=== PATIENT | male | born 1970 | race Caucasian/White ===

== ENCOUNTER → 2023-09-29 | Outpatient (CLI) | payer OTHER, SELFPAY ==
--- NOTE | 2023-09-29 08:45 | RAD_ITS ---
EXAM: XR RIGHT ANKLE, 2 VIEWS CLINICAL INDICATION: RIGHT ANKLE RESIDUALS OF BROKEN ANKLE TECHNIQUE: Frontal and lateral views of the right ankle. COMPARISON: No relevant prior studies available. FINDINGS: BONES/JOINTS: Corticated ossicle adjacent to the fibular head which may represent remote trauma with nonunion. This could also be developmental. Tiny posterior calcaneal enthesophyte. Ankle mortise is intact. Preservation of the joint space. No sclerotic or destructive changes observed. No acute 4 healing fracture or malalignment. SOFT TISSUES: Moderate soft tissue swelling adjacent to the lateral malleolus. Moderate tibiotalar joint effusion suspected, more prominent posteriorly. RAD/Ankle 2 Views IMPRESSION: 1. Corticated ossicle adjacent to the fibular head which may represent remote trauma with nonunion. This could also be developmental. 2. Moderate soft tissue swelling adjacent to the lateral malleolus. Moderate tibiotalar joint effusion suspected, more prominent posteriorly. Electronically Signed: Adeel Maynard MD at 23:17 EDT ,
--- OUTSIDE RECORDS SUMMARY | 2023-09-29 09:03 | XMS RPT_ITS | CCD ---
Author Name Unknown Address [address] [place] [address] Organization [facility] Care Team Providers Care Consulting Utility Forester Name Role Phone Lala Meyers MD Primary Care Provider LALA MEYERS Primary Care Unavailable NIKKI REMY Attending Unavailable Lala Meyers MD Primary Care Provider SELF Referring Unavailable LALA MEYERS Primary Care Unavailable ROMEO GARCIA Attending Unavailable ROMEO GARCIA Referring Unavailable LALA MEYERS Primary Care Unavailable LALA MEYERS Primary Care Unavailable KELLIE MOREAU Attending Unavailable TOMASZ SEXTON MD Attending Unavailable PA, [facility] Primary Care Unavailable LESIA MCCLAIN Consulting Unavailable Medications Current Medications Medication Drug Class(es) Dates Sig (Normalized) Sig (Original) tobramycin 3 mg/ml ophthalmic solution (1 source) Aminoglycoside Antibacterial Start: 01-03-2023 End: 01-08-2023 take 1-2 drop(s) into the eye(s) three times daily tobramycin (TOBREX) 0.3 % ophthalmic solution Indications: Foreign body of left cornea, initial encounter Use 1-2 Drops in the left eye three times daily for 5 days. 5 mL 0 01/03/2023 01/08/2023 Active Completed/Discontinued Medications Medication Drug Class(es) Dates Sig (Normalized) Sig (Original) bisacodyl 5 mg delayed release oral tablet (5 sources) Stimulant Laxative Start: 10-01-2021 Bisacodyl (DULCOLAX) 5 mg tab Use as directed for Miralax / Gatorade Bowel Prep Kit 4 tablet 0 10/01/2021 Active Problems Active Problems Problem Classification Problem Date Documented Date Episodic/Chronic Abdominal pain (1 source) Left lower quadrant pain; Translations: [Left lower quadrant abdominal pain] Onset: 09-15-2023 Episodic Disorders of lipid metabolism (1 source) Mixed hyperlipidemia; Translations: [Mixed hyperlipidemia] Chronic Diverticulosis and diverticulitis (1 source) Diverticulitis of intestine, part unspecified, without perforation or abscess without bleeding; Translations: [Diverticulitis] Onset: 09-15-2023 Chronic Other injuries and conditions due to external causes (1 source) Unspecified injury of unspecified wrist, hand and finger(s), initial encounter; Translations: [Fish hook in finger] Onset: 12-15-2022 Episodic Other injuries and conditions due to external causes (1 source) Foreign body in left cornea; Translations: [Foreign body in cornea, left eye, initial encounter] Episodic Other screening for suspected conditions (not mental disorders or infectious disease) (1 source) Patient encounter status; Translations: [Encounter for screening for malignant neoplasm of colon] Episodic Other upper respiratory infections (1 source) Pharyngitis; Translations: [Acute pharyngitis, unspecified] Episodic Residual codes; unclassified (1 source) Family history of cancer of colon; Translations: [Family history of malignant neoplasm of digestive organs] Episodic Past or Other Problems Problem Classification Problem Date Documented Date Episodic/Chronic Other injuries and conditions due to external causes (1 source) Foreign body in cornea, left eye, initial encounter; Translations: [Foreign body of left cornea, initial encounter] Onset: 01-03-2023 Episodic Residual codes; unclassified (5 sources) Family history of malignant neoplasm of gastrointestinal tract; Translations: [Family history of malignant neoplasm of digestive organs] Onset: 04-01-2011 04-01-2011 Episodic Results Test Name Value Interpretation Reference Range Facil ity Vital Signs Date Time Vital Sign Value Performing Clinician Faci lity 01-03-2023 09:16-0400 Body temperature 97.39 [degF] Kellie Moreau MD Work Phone: [facility] 01-03-2023 09:16-0400 Body weight 106.59 kg Kellie Moreau MD Work Phone: [facility] 01-03-2023 09:16-0400 Diastolic blood pressure 68 mm[Hg] Kellie Moreau MD Work Phone: [facility] 01-03-2023 09:16-0400 Heart rate 62 /min Kellie Moreau MD Work Phone: [facility] 01-03-2023 09:16-0400 Respiratory rate 18 /min Kellie Moreau MD Work Phone: [facility] 01-03-2023 09:16-0400 SaO2% (BldA) [Mass fraction] 98 % Kellie Moreau MD Work Phone: [facility] 01-03-2023 09:16-0400 Systolic blood pressure 143 mm[Hg] Kellie Moreau MD Work Phone: [facility] 06-24-2022 10:20-0500 Body temperature 98.4 [degF] Amy Schaal OBIEE LEAD DEVELOPER.INSIDE CHANNEL ACCOUNT MANAGER Work Phone: [facility] 06-24-2022 10:20-0500 Body weight 112.49 kg Amy Schaal OBIEE LEAD DEVELOPER.INSIDE CHANNEL ACCOUNT MANAGER Work Phone: [facility] 06-24-2022 10:20-0500 Diastolic blood pressure 90 mm[Hg] Amy Schaal OBIEE LEAD DEVELOPER.INSIDE CHANNEL ACCOUNT MANAGER Work Phone: [facility] 06-24-2022 10:20-0500 Heart rate 63 /min Amy Schaal OBIEE LEAD DEVELOPER.INSIDE CHANNEL ACCOUNT MANAGER Work Phone: [facility] 06-24-2022 10:20-0500 Respiratory rate 17 /min Amy Schaal OBIEE LEAD DEVELOPER.INSIDE CHANNEL ACCOUNT MANAGER Work Phone: [facility] 06-24-2022 10:20-0500 SaO2% (BldA) [Mass fraction] 97 % Amy Schaal OBIEE LEAD DEVELOPER.INSIDE CHANNEL ACCOUNT MANAGER Work Phone: [facility] 06-24-2022 10:20-0500 Systolic blood pressure 161 mm[Hg] Amy Schaal OBIEE LEAD DEVELOPER.INSIDE CHANNEL ACCOUNT MANAGER Work Phone: [facility] 11-05-2021 09:05-0400 Diastolic blood pressure 86 mm[Hg] Blas Menezes MD Work Phone: [facility] 11-05-2021 09:05-0400 Heart rate 50 /min Blas Menezes MD Work Phone: [facility] 11-05-2021 09:05-0400 Respiratory rate 18 /min Blas Menezes MD Work Phone: [facility] 11-05-2021 09:05-0400 SaO2% (BldA) [Mass fraction] 98 % Blas Menezes MD Work Phone: [facility] 11-05-2021 09:05-0400 Systolic blood pressure 138 mm[Hg] Blas Menezes MD Work Phone: [facility] 11-05-2021 08:48-0400 Body temperature 97 [degF] Blas Menezes MD Work Phone: [facility] Encounters Encounter Date Encounter Type Care Provider Facility Start: 09-16-2023 End: 09-16-2023 Emergency department patient visit TOMASZ SEXTON MD Facility:A Start: 09-15-2023 End: 09-15-2023 ambulatory SELF Facility:[id number] Start: 01-03-2023 End: 01-03-2023 ambulatory LALA GANTA Facility:[id number] Start: 01-03-2023 End: 01-03-2023 Office outpatient visit 15 minutes Kellie Moreau MD Work Phone: [facility] [place] Procedures Date Procedure Procedure Detail Performing Clinician Start: 06-24-2022 Iaad ia streptococcu s group a Amy Herb OBIEE LEAD DEVELOPER.INSIDE CHANNEL ACCOUNT MANAGER Work Phone: Start: 11-05-2021 Colon ca scrn not hi rsk ind Cari Tom PA-C Work Phone: Start: 11-05-2021 Colonoscopy Blas Menezes MD Work Phone: Start: 05-21-2021 Adult depression scr eening assessment Prudence Villegas OBIEE LEAD DEVELOPER.INSIDE CHANNEL ACCOUNT MANAGER Work Phone: Start: 05-10-2016 Colonoscopy Prudence Villegas OBIEE LEAD DEVELOPER.INSIDE CHANNEL ACCOUNT MANAGER Work Phone: Plan of Treatment Date Care Activity Detail Author Start: 12-15-2032 Urine microalbumin profile DTAP,TDAP,TD (2 - Td or Tdap) [facility] Start: 11-05-2026 Colonoscopy COLONOSCOPY [facility] Start: 11-05-2026 COLORECTAL CANCER SCREENING COLORECTAL CANCER SCREENING [facility] Start: 09-20-2026 LIPID SCREEN LIPID SCREEN [facility] Start: 09-20-2024 DIABETES SCREEN DIABETES SCREEN [facility] Start: 03-21-2023 Influenza vaccination INFLUENZA (Season Ended) [facility] Start: 07-21-2022 DEPRESSION ASSESSMENT DEPRESSION ASSESSMENT [facility] Start: 06-24-2022 End: 08-24-2022 Respiratory pathogens DNA and RNA 12b panel - Unspecified specimen by JOSE CARLOS with probe detection [facility] Work Phone: Immunizations Immunization Date Immunization Notes Care Provider Fa eusebio 12-15-2022 tetanus toxoid, redu austin diphtheria toxoid, and acellular pertussis vaccine, adsorbed Kellie Moreau MD Work Phone: [facility] Payers Date Payer Category Payer Unknown [id number] 2020 Private Health Insurance [facility] [employer] [id number] 2020-Present [phone] [address] [place] [id number] O [id number] 2020 Private Health Insurance [facility] [employer] [id number] 2020-Present [phone] [address] [place] [id number] O [id number] 2020 Unknown [id number] 1970 Unknown [id number] Social History Date Type Detail Facility Start: 09-14-2021 End: 01-03-2023 Tobacco smoking status NHIS Ex-smoker [facility] Work Phone: End: 07-21-2019 History of tobacco use Current smoker [facility] Work Phone: End: 07-21-2019 History of tobacco use Cigar Smoker [facility] Work Phone: Start: 09-14-2021 End: 01-03-2023 Tobacco use and exposure Smokeless tobacco non-user [facility] Work Phone: Start: 09-14-2021 End: 01-03-2023 Alcohol intake Current drinker of alcohol (finding) [facility] Start: 09-14-2021 End: 01-03-2023 Alcohol intake [facility] Start: 09-13-2021 History SDOH Alcohol Frequency 3 [facility] Start: 09-13-2021 History SDOH Alcohol Binge 2 [facility] Start: 09-13-2021 History SDOH Social Connections Meetings 1 [facility] Start: 09-13-2021 History SDOH Physica l Activity MPS 9 [facility] Start: 09-13-2021 History SDOH Financial 4 [facility] Start: 08-04-2019 End: 01-03-2023 Tobacco Comment rare [facility] Start: 1970 Sex Assigned At Not on file [facility] Start: 10-26-2021 End: 06-24-2022 Exposure to SARS-CoV-2 (event) Not sure [facility] Clinical Notes 05-10-2016 to 09-15-2023 Patient InstructionsPratheanthony Moreau MD - 01/03/2023 9:22 AM EDTPatient Bang Estevez APRN.CNP - 06/24/2022 10:43 AM Deana Lora RN - 11/05/2021 9:14 AM EDT Note Date & Type Note Facility 09-15-2023 Note HNO ID: [id number] Author: ORMEO GARCIA APRN.KILEY Service: ? Author Type: Nurse Practitioner Type: Progress Notes Filed: 09/15/2023 13:12 Note Text: Kal is a 52 year old male arriving at clinic today for Patient presents with: Abdominal Pain: Lower Middle Started yesterday evening Hx of diverticulitis Rash: Patient states he broke out into hives in the middle of night and it went away after taking benadryl HPI A 52 y/o male presents with lower abdominal pain with burning, or feeling of hot spots. He had a colonoscopy and was diagnosed with diverticulosis. He feels he is having a flare up. Denies fever, chills. Vital Signs: BP 125/86 Pulse 86 Temp (Src) 97.4 (Temporal) Resp 18 SpO2 97% Allergies: ALLERGIES No Known Allergies Current Medications: MULTIVITAMIN ORAL Take by mouth once daily. Lactobacillus acidophilus (PROBIOTIC ORAL) Take by mouth once daily. Garlic 1,000 mg cap Take by mouth as directed. [place]-3 Fatty Acids (SALMON OIL-1000) 1,000-200 mg cap TAKE BY MOUTH EVERY DAY diclofenac (VOLTAREN) 1 % topical gel APPLY 4GM MEASURED ON DOSING CARD EXTERNALLY TWICE A DAY TO RIGHT ANKLE (GENTLY MASSAGE INTO SKIN) *FLAMMABLE: KEEP AWAY FROM HEAT AND FLAMES* polyethylene glycol 3350 (MIRALAX, GLYCOLAX) 17 gram/dose powder Use as directed for Miralax / Gatorade Bowel Prep Kit Gatorade Sports Drink Use as directed for Miralax / Gatorade Bowel Prep Kit Bisacodyl (DULCOLAX) 5 mg tab Use as directed for Miralax / Gatorade Bowel Prep Kit sulfamethoxazole-trimethoprim (BACTRIM DS) 800-160 mg per tablet Take 1 tablet by mouth two times a day for 7 days. metroNIDAZOLE (FLAGYL) 500 mg tablet Take 1 tablet by mouth two times a day for 7 days. PAST MEDICAL HISTORY Diagnosis Date Diverticulosis of colon (without mention of hemorrhage) High cholesterol PAST SURGICAL HISTORY Procedure Laterality Date COLONOSCOPY FLX DX W/COLLJ SPEC WHEN PFRMD [id number] Colonoscopy COLONOSCOPY FLX DX W/COLLJ SPEC WHEN PFRMD 05/27/2011 Colonoscopy COLONOSCOPY FLX DX W/COLLJ SPEC WHEN PFRMD 05/10/2016 Colonoscopy COLONOSCOPY SCREENING 11/05/2021 Review of Systems: Review of Systems see HPI Exam: Physical Exam ASSESSMENT/PLAN: 1. Left lower quadrant abdominal pain - ICD9: 789.04, ICD10: R10.32 (primary diagnosis) Unremarkable - XR ABDOMEN 1V SUPINE 2. Diverticulitis - ICD9: 562.11, ICD10: K57.92 Diet Modification Push fluids Plenty of rest If symptoms worsen with treatment, go to ED - SULFAMETHOXAZOLE 800 MG-TRIMETHOPRIM 160 MG TABLET - METRONIDAZOLE 500 MG TABLET Patient stable at discharge If worsen, go to ED Reviewed exam results in detail and plan with patient Patient understands and agreed. Romeo Garcia APRN.INSIDE CHANNEL ACCOUNT MANAGER . [facility] 09-15-2023 Note HNO ID: [id number] Author: DEE PECK RT(R) Service: ? Author Type: Technologist Type: Progress Notes Filed: 09/15/2023 13:12 Note Text: Radiology Service Progress Note PATIENT NAME: Kal Ibrahim DATE OF SERVICE: September 15, 2023 TIME: 1:11 PM PATIENT IDENTITY VERIFICATION COMPLETED USING TWO (2) IDENTIFIERS: Name and Date of confirmed by patient verbally. FALL SCREENING: Has the patient had 2 falls in the last year or 1 fall with injury or currently using an Ambulatory Assistive Device (Walker, Cane, Wheelchair, Crutches, etc.)? No PATIENT GENDER DATA: Male PATIENT RELEVANT IMPLANT DATA REVIEWED: Not Applicable PATIENT PRESENTS WITH AN IMPLANTABLE OR ATTACHED MEDICAL REVIEWER: No RADIOLOGY DEPARTMENT: General X-ray: Exam(s) Completed: Abdomen X-Ray: Abdomen PERIPHERAL IV DATA: Not applicable SIGNED BY: RT Doc(R) September 15, 2023 1:11 PM [facility] 01-03-2023 Note HNO ID: [id number] Author: Kellie Moreau MD Service: ? Author Type: Physician Type: Progress Notes Filed: 01/03/2023 9:40 AM Note Text: Kal Ibrahim is a 52 year old MALE who presents with Eye Problem (Left eye watery/pain thinks something is in eye x 3 days off/on) 52 years old male presented with irritation of the left eye for the last few days He feels like there is something in his eye, when he looked into the mirror he saw white spot on the upper part of his cornea He has been having a lot of watering, vision is unchanged No other problem at this visit PAST MEDICAL HISTORY Diagnosis Date Diverticulosis of colon (without mention of hemorrhage) High cholesterol ACTIVE PROBLEM LIST Family History of Malignant Neoplasm of Gastrointestinal Tract Current Outpatient Medications Medication Sig Dispense Refill Garlic 1,000 mg cap Take by mouth as directed. [place]-3 Fatty Acids (SALMON OIL-1000) 1,000-200 mg cap TAKE BY MOUTH EVERY DAY diclofenac (VOLTAREN) 1 % topical gel APPLY 4GM MEASURED ON DOSING CARD EXTERNALLY TWICE A DAY TO RIGHT ANKLE (GENTLY MASSAGE INTO SKIN) *FLAMMABLE: KEEP AWAY FROM HEAT AND FLAMES* polyethylene glycol 3350 (MIRALAX, GLYCOLAX) 17 gram/dose powder Use as directed for Miralax / Gatorade Bowel Prep Kit (Patient not taking: Reported on 06/24/2022) 238 g 0 Gatorade Sports Drink Use as directed for Miralax / Gatorade Bowel Prep Kit (Patient not taking: Reported on 06/24/2022) Bisacodyl (DULCOLAX) 5 mg tab Use as directed for Miralax / Gatorade Bowel Prep Kit (Patient not taking: Reported on 06/24/2022) 4 tablet 0 No current facility-administered medications for this visit. Social History Tobacco Use Smoking status: Former Types: Cigars Quit date: 2019 Years since quittin.4 Smokeless tobacco: Never Tobacco comments: rare Vaping Use Vaping Use: Former Substance Use Topics Alcohol use: Yes Alcohol/week: 2.0 standard drinks Types: 2 Shots of liquor per week Drug use: No Alcohol Use: Approximately 1.2 oz/week [which includes 2 Shots of liquor per week] Tobacco Use: Types: Cigars FAMILY HISTORY Problem Relation Age of Onset Colon Cancer Father 50 Skin Cancer Father Colon Cancer Paternal Aunt Colon Cancer Paternal Uncle No Known Problems Mother Colon Cancer Brother Colon Cancer Paternal Grandmother other (Other) Paternal Grandfather mental health dx other (Other) Brother ETOH abuse Psoriasis Son Review of Systems Eyes: Positive for redness. Irritation and watering of the left eye with suspected foreign body Respiratory: Negative. Cardiovascular: Negative. All other systems reviewed and are negative. BP 143/68 Pulse 62 Temp 97.4 Resp 18 Wt 235 lb (106.6kg) SpO2 98% Physical Exam Vitals reviewed. Constitutional: Appearance: Normal appearance. Eyes: Extraocular Movements: Extraocular movements intact. Pupils: Pupils are equal, round, and reactive to light. Comments: Exam the left eye revealed small whitish foreign body particle at the rim of the cornea at 11 o'clock position Left eye was slightly injected with some watering, no discharge The rest of exam was normal After verbal consent I tried to remove the foreign body with the help of wet Q-tip but it was not successful, I numbed his eye with tetracaine 1 drop. When the eye was numb I attempted to remove again with the help of wet Q-tip in the first attempt the foreign body was partially removed, in the second attempt I was able to remove the remaining foreign body. Reevaluation after removal did not show any remaining foreign body on his cornea. So the removal was eventually successful. Neurological: Mental Status: He is alert. Current body from the left cornea was removed as explained above. Explained patient that I still want him to see an eye doctor because the foreign body remained there for 3 days Patient understand and agreed ASSESSMENT/PLAN: 1. Foreign body of left cornea, initial encounter - ICD9: 930.0, E914, ICD10: T15.02XA - TOBRAMYCIN 0.3 % EYE DROPS Don't rub your eye See eye doctor for further care Explained Use eyedrops as instructed Kellie Moreau MD [facility] 01-03-2023 Instructions Kellie Moreau MD - 01/03/2023 9:38 AM EDT Don't rub your eye See eye doctor for further care Explained Use eyedrops as instructed documented in this encounter [facility] 01-03-2023 History of Presen t illness Narrative Kal Ibrahim is a 52 year old MALE who presents with Eye Problem (Left eye watery/pain thinks something is in eye x 3 days off/on) 52 years old male presented with irritation of the left eye for the last few days He feels like there is something in his eye, when he looked into the mirror he saw white spot on the upper part of his cornea He has been having a lot of watering, vision is unchanged No other problem at this visit PAST MEDICAL HISTORY Diagnosis Date Diverticulosis of colon (without mention of hemorrhage) High cholesterol ACTIVE PROBLEM LIST Family History of Malignant Neoplasm of Gastrointestinal Tract Current Outpatient Medications Medication Sig Dispense Refill Garlic 1,000 mg cap Take by mouth as directed. [place]-3 Fatty Acids (SALMON OIL-1000) 1,000-200 mg cap TAKE BY MOUTH EVERY DAY diclofenac (VOLTAREN) 1 % topical gel APPLY 4GM MEASURED ON DOSING CARD EXTERNALLY TWICE A DAY TO RIGHT ANKLE (GENTLY MASSAGE INTO SKIN) *FLAMMABLE: KEEP AWAY FROM HEAT AND FLAMES* polyethylene glycol 3350 (MIRALAX, GLYCOLAX) 17 gram/dose powder Use as directed for Miralax / Gatorade Bowel Prep Kit (Patient not taking: Reported on 06/24/2022) 238 g 0 Gatorade Sports Drink Use as directed for Miralax / Gatorade Bowel Prep Kit (Patient not taking: Reported on 06/24/2022) Bisacodyl (DULCOLAX) 5 mg tab Use as directed for Miralax / Gatorade Bowel Prep Kit (Patient not taking: Reported on 06/24/2022) 4 tablet 0 No current facility-administered medications for this visit. Social History Tobacco Use Smoking status: Former Types: Cigars Quit date: 2019 Years since quittin.4 Smokeless tobacco: Never Tobacco comments: rare Vaping Use Vaping Use: Former Substance Use Topics Alcohol use: Yes Alcohol/week: 2.0 standard drinks Types: 2 Shots of liquor per week Drug use: No Alcohol Use: Approximately 1.2 oz/week [which includes 2 Shots of liquor per week] Tobacco Use: Types: Cigars FAMILY HISTORY Problem Relation Age of Onset Colon Cancer Father 50 Skin Cancer Father Colon Cancer Paternal Aunt Colon Cancer Paternal Uncle No Known Problems Mother Colon Cancer Brother Colon Cancer Paternal Grandmother other (Other) Paternal Grandfather mental health dx other (Other) Brother ETOH abuse Psoriasis Son Review of Systems Eyes: Positive for redness. Irritation and watering of the left eye with suspected foreign body Respiratory: Negative. Cardiovascular: Negative. All other systems reviewed and are negative. BP 143/68 Pulse 62 Temp 97.4 Resp 18 Wt 235 lb (106.6kg) SpO2 98% Physical Exam Vitals reviewed. Constitutional: Appearance: Normal appearance. Eyes: Extraocular Movements: Extraocular movements intact. Pupils: Pupils are equal, round, and reactive to light. Comments: Exam the left eye revealed small whitish foreign body particle at the rim of the cornea at 11 o'clock position Left eye was slightly injected with some watering, no discharge The rest of exam was normal After verbal consent I tried to remove the foreign body with the help of wet Q-tip but it was not successful, I numbed his eye with tetracaine 1 drop. When the eye was numb I attempted to remove again with the help of wet Q-tip in the first attempt the foreign body was partially removed, in the second attempt I was able to remove the remaining foreign body. Reevaluation after removal did not show any remaining foreign body on his cornea. So the removal was eventually successful. Neurological: Mental Status: He is alert. Current body from the left cornea was removed as explained above. Explained patient that I still want him to see an eye doctor because the foreign body remained there for 3 days Patient understand and agreed ASSESSMENT/PLAN: 1. Foreign body of left cornea, initial encounter - ICD9: 930.0, E914, ICD10: T15.02XA - TOBRAMYCIN 0.3 % EYE DROPS Don't rub your eye See eye doctor for further care Explained Use eyedrops as instructed Kellie Moreau MD documented in this encounter [facility] 06-24-2022 Instructions Amy Estevez APRN.[facility] - 06/24/2022 11:07 AM EST Mask until COVID-19 results known. How to Manage Common Symptoms Associated with COVID for Adults Fever- Fever is a temperature over 100.4 F and can occur when the body is fighting an infection. To help treat a fever: Drink plenty of fluids and stay well hydrated. Eat small amounts of easy to digest food. Rest. Your body needs rest to recover, but getting up and moving around the house frequently is a good idea. You should try to continue doing your normal daily activities (bathing, toileting, grooming, cooking), though you will probably feel tired, and need to rest often. Avoid any heavy activity or exercise, as this will increase your body temperature. Dress in light clothing and stay covered in a light sheet. Keep the room temperature cool. Take a slightly warm (not cold or cool) bath, or apply damp washcloths to the forehead and wrists. Cough- Cough is a common symptom associated with COVID and can be bothersome. To help treat a cough: Stay well hydrated. Try warm water or tea with lemon and/or honey to help soothe the cough. Use a humidifier to add moisture to the air. Try a product with menthol, like a cough drop or a rub for your chest such as Vicks, which can help reduce cough. Try cough drops. Avoid smoking and other strong odors or perfumes. Try breathing exercises to keep your lungs open and clear. Take a big deep breath through your nose and hold for 5 seconds before slowly releasing. Repeat frequently, while you are awake. Congestion- Runny nose or nasal congestion can occur with COVID. Treatment can help relieve symptoms: Try OTC nasal saline spray, or nasal saline rinse to relieve mucus congestion. Nasal strips can help keep nasal passages open, to increase airflow. Elevating your head with an extra pillow in bed can help reduce congestion. Using a humidifier can increase moisture in the air, and make breathing easier. Sore Throat- Another common symptom with COVID, can be managed at home by: Stay well hydrated. Gargle with salt water - mix teaspoon salt with 1 cup of warm water and gargle. This helps to loosen mucus in the back of the throat and may reduce discomfort. Try ice chips, popsicles or lozenges to soothe the throat. Nausea/Vomiting/Diarrhea- These are common symptoms, and staying hydrated is most important. If you are nauseous or vomiting, start with small sips of water every 10-15 minutes and increase as tolerated. You can try sucking an ice cube too. If tolerating, you can try pedialyte or Gatorade, or flat sprite or candice-chris. Start slowly and increase as you are able to. Instead of meals, try smaller, more frequent snacks. Try eating bland foods like crackers, toast, rice, and applesauce. Avoid spicy, greasy or fried foods and dairy containing foods. Even if you aren't feeling hungry due to lack of smell or taste, it is important to try to take in some food when you are able. After drinking and eating, rest in an upright position for up to two hours as needed to help decrease nauseous feelings. Try closing your eyes, avoid moving and watching TV. Avoid strong odors that can make you feel more nauseated. When to seek emergency medical attention Look for emergency warning signs for COVID-19. If having any of these symptoms, seek emergency medical care immediately: Trouble breathing Persistent pain or pressure in the chest New confusion Inability to wake or stay awake Bluish lips or face *This list is not all possible symptoms. Please call your medical provider for any other symptoms that are severe or concerning to you. documented in this encounter [facility] 06-24-2022 History of Presen t illness Narrative CC: Sore Throat (Cough congestion sinus pressure fever had a rash on while fevered) HPI: Kal Ibrahim is an 51 year old male presenting with complaints of a sore throat, cough, congestion, sinus pressure and subjective fevers. He states that on while he was fevered he developed a red rash, head to toe that was very itchy for 12 hours but resolved on its own, and has not returned. Denies change in lotions, soaps, detergents, diet or medication with onset of rash. Denies any shortness of breath or difficulty breathing. Denies nausea, vomiting or diarrhea. was exposed to strep and would like to be tested. Been taking Mucinex and Tylenol for the symptoms. States that he is just not getting any better. PAST MEDICAL HISTORY Diagnosis Date Diverticulosis of colon (without mention of hemorrhage) High cholesterol ACTIVE PROBLEM LIST Family History of Malignant Neoplasm of Gastrointestinal Tract ALLERGIES No Known Allergies Current Outpatient Medications Medication Sig Dispense Refill rosuvastatin (CRESTOR) 5 mg tablet TAKE 1 TABLET BY MOUTH EVERYDAY AT BEDTIME (Patient not taking: Reported on 06/24/2022) 30 tablet 5 polyethylene glycol 3350 (MIRALAX, GLYCOLAX) 17 gram/dose powder Use as directed for Miralax / Gatorade Bowel Prep Kit (Patient not taking: Reported on 06/24/2022) 238 g 0 Gatorade Sports Drink Use as directed for Miralax / Gatorade Bowel Prep Kit (Patient not taking: Reported on 06/24/2022) Bisacodyl (DULCOLAX) 5 mg tab Use as directed for Miralax / Gatorade Bowel Prep Kit (Patient not taking: Reported on 06/24/2022) 4 tablet 0 No current facility-administered medications for this visit. Social History Tobacco Use Smoking status: Former Types: Cigars Quit date: 2019 Years since quittin.9 Smokeless tobacco: Never Tobacco comments: rare Vaping Use Vaping Use: current everyday user Substance Use Topics Alcohol use: Yes Alcohol/week: 2.0 standard drinks Types: 2 Shots of liquor per week Drug use: No Alcohol Use: Approximately 1.2 oz/week [which includes 2 Shots of liquor per week] Tobacco Use: Quit 07/21/2019. Types: Cigars (rare) FAMILY HISTORY Problem Relation Age of Onset Colon Cancer Father 50 Skin Cancer Father Colon Cancer Paternal Aunt Colon Cancer Paternal Uncle No Known Problems Mother Colon Cancer Brother Colon Cancer Paternal Grandmother other (Other) Paternal Grandfather mental health dx other (Other) Brother ETOH abuse Psoriasis Son ROS: Unless otherwise stated in this report the patient's positive and negative responses for review of systems for constitutional, eyes, ENT, cardiovascular, respiratory, gastrointestinal, neurological, , musculoskeletal, and integument systems and related systems to the presenting problem are either stated in the history of present illness or were not pertinent or were negative for the symptoms and/or complaints related to the presenting medical problem. Positives and pertinent negatives as per HPI. All others reviewed and are negative. 06/24/22 1020 BP: (!) 161/9 Pulse: 63 Resp: 17 Temp: 36.9 C (98.4 F) SpO2: 97% Weight: 112.5 kg (248 lb) Physical Exam: Physical Exam Vitals and nursing note reviewed. Constitutional: General: He is not in acute distress. Appearance: Normal appearance. He is not ill-appearing or toxic-appearing. HENT: Right Ear: Hearing normal. Tympanic membrane is erythematous. Tympanic membrane is not perforated. Left Ear: Hearing normal. Tympanic membrane is erythematous. Tympanic membrane is not perforated. Nose: Congestion and rhinorrhea present. Right Turbinates: Swollen. Left Turbinates: Swollen. Right Sinus: Maxillary sinus tenderness and frontal sinus tenderness present. Left Sinus: Maxillary sinus tenderness and frontal sinus tenderness present. Mouth/Throat: Mouth: Mucous membranes are moist. Pharynx: Posterior oropharyngeal erythema present. No pharyngeal swelling, oropharyngeal exudate or uvula swelling. Tonsils: No tonsillar exudate or tonsillar abscesses. Cardiovascular: Rate and Rhythm: Normal rate and regular rhythm. Heart sounds: Normal heart sounds, S1 normal and S2 normal. No murmur heard. No friction rub. No gallop. Pulmonary: Effort: Pulmonary effort is normal. No respiratory distress. Breath sounds: Normal breath sounds and air entry. No decreased breath sounds, wheezing, rhonchi or rales. Skin: General: Skin is warm and dry. Capillary Refill: Capillary refill takes less than 2 seconds. Neurological: Mental Status: He is alert. Mental status is at baseline. Psychiatric: Behavior: Behavior is cooperative. ASSESSMENT/PLAN: 1. Pharyngitis, unspecified etiology - ICD9: 462, ICD10: J02.9 - Rapid Strep negative in the office today and Throat culture pending - RAPID GROUP A STREP RFLX TO CULT - Symptomatic treatment with [id number] analgesics and decongestants as needed. - Warm salt water gargles, antiseptic throat sprays and throat lozenges as needed for discomfort in the throat - Wear a mask and we will call with results. - COVID-19 symptom management reviewed with patient - Discussed warning symptoms that should prompt evaluation at the emergency department. - Follow-up with primary care/construction manager in 3 to 5 days if symptoms unresolved, or to the emergency department for worsening symptoms. - Patient/Guardian agrees & understands plan Amy Estevez APRN.INSIDE CHANNEL ACCOUNT MANAGER documented in this encounter [facility] 11-05-2021 Note HNO ID: [id number] Author: Alysa Lora RN Service: ? Author Type: Registered Nurse Type: Nursing Progress Note Filed: 11/05/2021 9:15 AM Note Text: Dr Menezes at bedside to speak with patient already. [facility] 11-05-[address] Menezes at bedside to speak with patient already. documented in this encounter [facility] 11-05-2021 History and physical note HISTORY AND PHYSICAL Kal Ibrahim, 51 year old male Current history and physical on file: Yes Is a new History and Physical required for today's visit? No Indication for procedure: Screening PROCEDURE(S) SCHEDULED FOR: Colonoscopy with or without biopsies and with or without removal of polyps or lesions, dilation (any means), treatment of bleeding (any means), based on clinical findings. BASELINE BEHAVIOR: Calm BASELINE ORIENTATION: A & O x3 All medications and allergies reviewed: Yes Skin Assessment: Warm dry mucus membranes pink Airway/Respiratory Assessment: Airway: visualization of the uvula- Yes Mouth: opening greater than 2 fingerbreadths- Yes Neck: full range of motion- Yes Breath sounds clear/equal- Yes Cardiac Assessment: Regular rate and rhythm without murmur Abdominal Assessment: Abdomen soft, non-tender, no masses or organomegaly. Sedation Plan: Moderate Additional Comments: None Blas Menezes MD documented in this encounter [facility] 10-24-2021 Miscellaneous Notes Patient has been identified by name and date of : Yes Patient phones for refill(s): Pending Prescriptions Disp Refills ROSUVASTATIN 5 MG TABLET 30 tablet 1 Sig: TAKE 1 TABLET BY MOUTH EVERYDAY AT BEDTIME ALEJANDRA: Yes Date of last office visit in primary care: 09/14/21 Last 2 Encounter Wt Readings: Date: Wt: 09/14/2021 105.2 kg (232 lb) 08/04/2019 112.5 kg (248 lb) Previous labs/tests for medication: Cholesterol: HDL Cholesterol (mg/dL) Date Value 09/20/2021 50 08/12/2019 47 LDL Cholesterol (mg/dL) Date Value 09/20/2021 215 08/12/2019 190 ALT (U/L) Date Value 09/20/2021 19 Non HDL Cholesterol (mg/dL) Date Value 09/20/2021 230 08/12/2019 224 Please advise. Thank you. Ling Ayala LPN documented in this encounter [facility] 10-08-2021 Note HNO ID: [id number] Author: Claudette De Leon Service: ? Author Type: ? Type: Progress Notes Filed: 10/08/2021 11:22 AM Note Text: Sleep Study Check-In Documentation Date: October 08, 2021 Name: Kal Ibrahim Comments: HST was returned in working order with all sleep questionnaires Claudette Jaciel Pss [facility] 10-04-2021 Note HNO ID: [id number] Author: Tiny Krishnan Pss Service: ? Author Type: ? Type: Progress Notes Filed: 10/08/2021 11:22 AM Note Text: Nomad: [id number] Date: 10/04/21 [employer] Mailout Tracking Number: [id number] [employer] Return Tracking Number: [id number] [facility] 09-14-2021 Note HNO ID: [id number] Author: Dustin Joel III, PhD Service: ? Author Type: Physician Type: Progress Notes Filed: 10/08/2021 11:22 AM Note Text: September 14, 2021 Standing PSG Orders signed in the last 90 days None Future PSG Orders signed in the last 90 days Ordered Auth. provider HOME SLEEP APNEA TEST (HSAT) [[id number]] 09/14/21 Ritu Villegas, [employer]BIEE LEAD DEVELOPER.INSIDE CHANNEL ACCOUNT MANAGER Assoc. diagnoses: Snoring [R06.83], Witnessed apneic spells [R06.81], Daytime sleepiness [R40.0], Elevated blood pressure reading in office without diagnosis of hypertension [R03.0] Q: Indications: A: Obstructive sleep apnea Q: STOP-BANG conditions - Select All That Apply: A: GENDER = male A2: SNORING that is loud or disruptive A3: OBSERVED sleep apnea A4: high blood PRESSURE A5: TIREDNESS, fatigue or sleepiness during the day Q: Current use of supplemental oxygen during sleep period?: A: No All Prior Sleep Studies (past 365 days) Some values may be hidden. Unless noted otherwise, only the newest values recorded on each date are displayed. Sleep Studies HOME SLEEP APNEA TEST (HSAT) Future Expected: Expires: 09/14/22 BMI Readings from Last 2 Encounters: No data found for BMI PAST MEDICAL HISTORY Diagnosis Date - Diverticulosis of colon (without mention of hemorrhage) The medical record was reviewed to determine if the proposed sleep study conforms to the [facility] Practice Parameters for the Indications for Polysomnography and Related Procedures, or if the sleep study is indicated for other reasons. Indications for study: LINH suspected without comorbid medical or sleep disorders Sleep study to be performed: Home Sleep Apnea Test (HSAT) Special instructions: None-follow laboratory protocol Nicho Coles-T - Sleep Medicine Staff Note: I have read the above protocol, edited as needed, and agree to the plan. Dustin Joel III, PhD 3:58 PM, 09/14/2021 [facility] 09-14-2021 Note HNO ID: [id number] Author: Phil Martin Service: ? Author Type: ? Type: Progress Notes Filed: 10/08/2021 11:22 AM Note Text: September 14, 2021 An order has been received for Home Sleep Apnea Test (HSAT) from Dr. Ritu Villegas APRN.jose a CAO [facility] Staff. Visit prep complete. Comments :No The sleep study is scheduled for 10/05. Insurance: Payor: [employer] / Plan: [facility] CHOICE PLUS / Product Type: HMO / Payor/Plan Subscr Sex Relation Sub. Ins. ID Effective Group Num 1. [facility]* KAL IBRAHIM 1970 Male Self [id number] 07[birth year] [address] Phil Martin [facility] 09-14-2021 Note HNO ID: [id number] Author: Ritu Villegas APRN.CNP Service: ? Author Type: Nurse Practitioner Type: Progress Notes Filed: 09/14/2021 10:06 AM Note Text: CC: Patient presents with: referred by EMT: MELODY in July - hypertension HPI Kal Ibrahim is a 50 year old male who presents today for above. Patient reports on08/10 he woke up suddenly feeling extremely dizzy, described as room spinning and bed felt like it was tilting. He had never experienced this before and was concerned he was having a heart attack so he called EMS. They did an EKG in the ambulance and he was told it was normal however BP was 190/90. They did not feel he needed to transport to the ER and was advised to follow-up with his PCP. He went to urgent care the next day and his BP was 140/80. No further episodes of vertigo but does get intermittent lightheadedness. He had COVID 2-3 weeks prior to this and wonders if it could be related. He does not have a history of hypertension. Checking home BP with average in the 130's/70's. This morning it was 127/70. Heart rate is always in the 40's-50's. Caffeine- 6 to 10 servings daily. Does not smoke and no drug abuse. Denies excessive alcohol intake. Exercise- runs 3 to 5 mils a few times a week Diet- has started limiting salt, trying to eat healthier Admits to snoring, witnessed apnea, wakes himself up choking, restless sleeper and daytime sleepiness. Denies un-refreshed sleep. REVIEW OF SYSTEMS General: no fevers, no chills, no night sweats, no change in appetite, no change in energy and no significant changes in weight HEENT: no frequent or significant headaches, no changes in hearing, no visual changes, no sinus or nasal problems Respiratory: no cough, no wheezing, no shortness of breath Cardiovascular: no chest pain, no chest pressure, no palpitations, no PND, no orthopnea and no swelling Psych: Negative for anxiety, panic attacks, significant stressors Neurologic: no syncope, no seizures, no memory loss, no confusion, no numbness or tingling of hands, no numbness or tingling of feet, no muscle weakness, no involuntary movements, no tremor PAST MEDICAL HISTORY Diagnosis Date - Diverticulosis of colon (without mention of hemorrhage) PAST SURGICAL HISTORY Procedure Laterality Date - COLONOSCOPY FLX DX W/COLLJ SPEC WHEN PFRMD Colonoscopy - COLONOSCOPY FLX DX W/COLLJ SPEC WHEN PFRMD 05/27/2011 Colonoscopy - COLONOSCOPY FLX DX W/COLLJ SPEC WHEN PFRMD 05/10/16 Colonoscopy ALLERGIES Patient has no known allergies. MEDICATIONS No prescriptions on file. FAMILY HISTORY Problem Relation Age of Onset - Colon Cancer Father 50 - Skin Cancer Father - Colon Cancer Paternal Aunt - Colon Cancer Paternal Uncle - No Known Problems Mother - Colon Cancer Brother - Colon Cancer Paternal Grandmother - other (Other) Paternal Grandfather mental health dx - other (Other) Brother ETOH abuse - Psoriasis Son Social History Tobacco Use - Smoking status: Former Smoker Types: Cigars Quit date: 2019 Years since quittin.1 - Smokeless tobacco: Never Used - Tobacco comment: rare Vaping Use - Vaping Use: current everyday user Substance Use Topics - Alcohol use: Yes Alcohol/week: 2.0 standard drinks Types: 2 Shots of liquor per week - Drug use: No PHYSICAL EXAM BP 140/88 Pulse (!) 52 Resp 12 Wt 105.2 kg (232 lb) SpO2 99% General Appearance: well appearing, in no acute distress, alert Pysch: affect is anxious Skin: Skin color, texture, turgor normal for age; Eyes: PERRLA, EOM's intact, conjunctiva pink and moist, no icterus, sclera white, non-injected Neck: Thyroid normal size and symmetric without palpable nodules, Neck supple, No adenopathy Lungs: Lungs clear to auscultation. No wheezing, rhonchi, rales. Heart: Regular rhythm, bradycardic without murmur, gallop, or rubs. No ectopy Neurological: Negative findings: speech normal, mental status intact, cranial nerves 2-12 intact, gait normal Ext: no edema in LE bilaterally, good distal pulses Health maintenance reviewed with patient: HEPATITIS C SCREENING Never done HIV SCREENING Never done DTAP,TDAP,TD(1 - Tdap) Never done ONE PNEUMOVAX PRIOR TO AGE 65 Never done SHINGRIX VACCINE(1 of 2) Never done INFLUENZA(1) Never done COLORECTAL CANCER SCREENING due on 05/10/2021 COVID-19 VACCINE(3 - Booster for Pfizer series) due on 05/17/2021 DEPRESSION SCREENING due on 05/21/2022 DIABETES SCREEN due on 08/12/2022 LIPID SCREEN due on 08/12/2024 MENINGOCOCCAL CONJUGATE Aged Out DATA REVIEWED: Most recent labs ASSESSMENT/PLAN: 1. Elevated blood pressure reading in office without diagnosis of hypertension - ICD9: 796.2, ICD10: R03.0 (primary diagnosis) Transient BP elevation - Encouraged dietary sodium restriction/DASH diet - Recommended regular aerobic exercise. - Recommend home blood pressure monitoring, to bring results in on next visit - Discuss (more content not included)... [facility] documented as of this encounter (statuses as of 10/24/2021) [facility] History of Past illness Narrative* Problem Noted Date Resolved Date Screening for malignant neoplasm of colon 201505/10/2016 documented as of this encounter (statuses as of 10/29/2021) [facility] History of Past illness Narrative* Problem Noted Date Resolved Date Screening for malignant neoplasm of colon 201505/10/2016 documented as of this encounter (statuses as of 11/06/2021) [facility] History of Past illness Narrative* Problem Noted Date Resolved Date Screening for malignant neoplasm of colon 201505/10/2016 documented as of this encounter (statuses as of 06/24/2022) [facility] History of Past illness Narrative* Problem Noted Date Resolved Date Screening for malignant neoplasm of colon 201505/10/2016 documented as of this encounter (statuses as of 01/03/2023) [facility] Diagnosis Hyperlipidemia, mixed Mixed hyperlipidemia [facility] this encounter [facility] Diagnosis Screening for colon cancer Special screening for malignant neoplasms, colon Family history of colon cancer Family history of malignant neoplasm of gastrointestinal tract documented [facility] this encounter [facility] Diagnosis Pharyngitis, unspecified etiology- Primary [facility] this encounter [facility] Diagnosis Foreign body of left cornea, initial encounter- Primary documented in this encounter [facility] for referral (narrative)* Outpatient Procedure (Routine) - Closed Specialty Diagnoses / Procedures Referred By Odilon medina Referred To Contact [facility] Diagnoses Screening for colon cancer Family history of colon cancer Procedures COLONOSCOPY SCREENING COLONOSCOPY FLX DX W/COLLJ SPEC WHEN PFRMD Cari Tom PA-C [address] [place] [address] [facility] [address] [address] Referral ID Status Reason Start Date Expiration Date V isits Requested Visits Authorized [id number] Closed Auto-Generate d Referral 10/01/2021 10/01/2022 1 1 [facility] for visit Narrative* Outpatient Procedure (Routine) - Closed Specialty Diagnoses / Procedures Referred By Odilon medina Referred To Contact [facility] Diagnoses Screening for colon cancer Family history of colon cancer Procedures COLONOSCOPY SCREENING COLONOSCOPY FLX DX W/COLLJ SPEC WHEN PFRMD Cari Tom PA-C [address] [place] [address] [facility] [address] [place] [address] Referral ID Status Reason Start Date Expiration Date V isits Requested Visits Authorized [id number] Closed Auto-Generate d Referral 10/01/2021 10/01/2022 1 1 [facility] Advance Directives No Advanced Directives Records FoundDocuments on File Type Date Recorded Patient Natural Resources Specialist Expl anation Advance Directive(s) 05/10/2016 12:45 PM Documents on File Type Date Recorded Patient Natural Resources Specialist Expl anation Advance Directive(s) 05/10/2016 12:45 PM Summary Purpose Family History No Family History Records FoundNo Family History Records FoundNo Family History Records FoundNo Family History Records Found Health Concerns Infection Onset Date Last Indicated Resolved Time COVID-19 Rule-Out 06/24/2022 06/24/2022 Respiratory Rule-Out 06/24/2022 06/24/2022 Additional Source Comments Source Comments (unrecognize d section and content) In the event this informatio n is protected by the Federal Confidentiality of Alcohol and Drug Abuse Patient Records regulations: The Federal rules restrict any use of the information to criminally investigate or prosecute any alcohol or drug abuse patient.[facility] the event this information is protected by the Federal Confidentiality of Alcohol and Drug Abuse Patient Records regulations: The Federal rules restrict any use of the information to criminally investigate or prosecute any alcohol or drug abuse patient.[facility] the event this information is protected by the Federal Confidentiality of Alcohol and Drug Abuse Patient Records regulations: The Federal rules restrict any use of the information to criminally investigate or prosecute any alcohol or drug abuse patient.[facility] the event this information is protected by the Federal Confidentiality of Alcohol and Drug Abuse Patient Records regulations: The Federal rules restrict any use of the information to criminally investigate or prosecute any alcohol or drug abuse patient.[facility] the event this information is protected by the Federal Confidentiality of Alcohol and Drug Abuse Patient Records regulations: The Federal rules restrict any use of the information to criminally investigate or prosecute any alcohol or drug abuse patient.[facility] Reason for Visit (unrecogniz ed section and content) Reason Comments Sore Throat Cough congestion sin us pressure fever had a rash on while fevered Reason Comments Eye Problem Left eye watery/pain thinks something is in eye x 3 days off/on Care Teams (unrecognized sec tion and content) Consulting Utility Forester Relationship Specialty Start Date End Date Lala Meyers MD [address] [place] [address] PCP - General Internal Medicine 09/14/21 Consulting Utility Forester Relationship Specialty Start Date End Date Lala Meyers MD [address] [facility] [place] [id number] PCP - General Internal Medicine 09/14/21 Consulting Utility Forester Relationship Specialty Start Date End Date Lala Meyers MD [address] [facility] [place] [address] PCP - General Internal Medicine 09/14/21 Consulting [employer] Relationship Specialty Start Date End Date Lala Meyers MD [address] [facility] [place] [phone] PCP - General Internal Medicine 09/14/21 (unrecognized sect ion and content) No Status Records FoundNo Status Records FoundNo Status Records FoundNo Status Records Found INFORMATION SOURCE (unrecogn ized section and content) DATE CREATED AUTHOR AUTHOR'S ORGANIZ ATION 12/27/2022 [facility] DATE CREATED AUTHOR AUTHOR'S ORGANIZ ATION 09/20/2023 [facility] nt DATE CREATED AUTHOR AUTHOR'S ORGANIZ ATION 09/25/2023 [facility] ([place]) FOR RECORDS PERTAINING TO PATIENTS WHO ARE OR HAVE BEEN ENROLLED IN A CHEMICAL DEPENDENCY/SUBSTANCEABUSE PROGRAM, SOME INFORMATION MAY BE OMITTED. This clinical summary was aggregated from multiple sources. Caution should be exercised in using it in the provision of clinical care. This summary normalizes information from multiple sources, and as a consequence, information in this document may materially change the coding, format and clinical context of patient data. In addition, data may be omitted in some cases. CLINICAL DECISIONS SHOULD BE BASED ON THE PRIMARY CLINICAL RECORDS. [employer] [facility]. provides no warranty or guarantee of the accuracy or completeness of information in this document.
== END | disposition home or self-care (01) ==
PROVIDERS: PCP Family Medicine; Referring Provider Chiropractor; Visit Provider Chiropractor
DX: M84.471A Pathological fracture, right ankle, initial encounter for fracture (principal)
CPT/HCPCS: 73600